=== PATIENT | female | born 1940 | race Caucasian/White ===

== ENCOUNTER 2018-11-12 15:06 | Emergency (ER) | payer SELFPAY ==
[~2018-11-12] VITALS: Ht 165.1 cm; Wt 63.7 kg
[2018-11-12 15:20] VITALS: BP 180/74
[2018-11-12 17:05] VITALS: BP 170/81
[2018-11-12] MEDS ORDERED: NEOMYCIN/POLYMYXIN/BACITRACIN 0.9 GM/1 PKT TP ONE (17:05)
== END 2018-11-12 17:05 | disposition home or self-care (01) ==
LOC: MED 15:06
DX: L72.3 Sebaceous cyst (principal); E11.9 Type 2 diabetes mellitus without complications; I10 Essential (primary) hypertension
CPT/HCPCS: 99281